=== PATIENT | male | born 1970 | race Caucasian/White ===

== ENCOUNTER 2018-03-07 22:56 | Emergency (ER) | payer SELFPAY, OTHER ==
[2018-03-07] MEDS: ASPIRIN 325 MG TAB PO (23:32)
[2018-03-08 01:11] LABS: TROPONIN-I < 0.010 ng/ml (0.000-0.120)
== END 2018-03-08 02:07 | disposition home or self-care (01) ==
LOC: FTE 03-08 02:07
DX: B34.9 Viral infection, unspecified (principal); F17.210 Nicotine dependence, cigarettes, uncomplicated
CPT/HCPCS: 84484; 93005; 99284-25